=== PATIENT | male | born 1980 | race Caucasian/White ===

== ENCOUNTER 2020-07-24 12:19 | Emergency (ER) | payer OTHER ==
[~2020-07-24] VITALS: Ht 182.9 cm; Wt 83.9 kg
[2020-07-24] MEDS ORDERED: KETO10TA2 PO (15:30)
[2020-07-24] MEDS ORDERED: LEVOFLOXACIN500 MG PO (15:30)
[2020-07-24] MEDS ORDERED: PYRIDIUM100 M1 PO (15:30)
== END 2020-07-24 15:42 | disposition home or self-care (01) ==
LOC: ER 12:19
DX: R30.0 Dysuria (principal)